=== PATIENT | male | born 1955 | race Caucasian/White ===

== ENCOUNTER 2019-12-04 11:04 | Emergency (ER) | payer MEDICAID ==
[~2019-12-04] VITALS: Ht 175.3 cm; Wt 83.9 kg
--- NOTE | 2019-12-04 11:05 | NUR ---
Placed in room 04 . Placed on equipment monitor phototypesetting, blood pressure machine and pulse oximeter. To gown for exam. Side rails up.
--- NOTE | 2019-12-04 11:06 | NUR ---
Pt brought by self,A&Ox4,pt presents to ER with N/V/D since monday, denies abd pain at this time, skin pink and warm, respirations even and unlabored, cap refill <3.
--- NOTE | 2019-12-04 11:09 | NUR ---
ER Dr. HOFFMANN at bedside examining patient
[2019-12-04 11:13] VITALS: BP_SYST 121
[2019-12-04] MEDS ORDERED: ONDANSETRON 4 MG ODT TAB PO ONE (11:45)
--- NOTE | 2019-12-04 11:53 | NUR ---
MEDICATED ORDERED, LABS DRAWN
[2019-12-04 11:55] LABS: BASOPHILS # (AUTO) 0.1 K/uL (0.0-0.2); BASOPHILS % (AUTO) 1.2 % (0.0-2.0); EOSINOPHILS # (AUTO) 0.1 K/uL (0.0-0.4); EOSINOPHILS % (AUTO) 0.9 % (0.0-4.0); HEMATOCRIT 38.5 % (36-54); HEMOGLOBIN 13.2 g/dL (14.0-18.0); LYMPHOCYTES # (AUTO) 1.4 K/uL (1.0-5.5); LYMPHOCYTES % (AUTO) 13.8 % (20.5-51.5); MEAN CORPUSCULAR HEMOGLOBIN 29 pg (27-31); MEAN CORPUSCULAR HGB CONC 34 % (32-36); MEAN CORPUSCULAR VOLUME 85 fL (79.0-98.0); MONOCYTES # (AUTO) 0.6 K/uL (0.0-1.0); MONOCYTES % (AUTO) 5.3 % (1.7-9.3); NEUTROPHILS # (AUTO) 8.2 K/uL (1.8-7.7); NEUTROPHILS % (AUTO) 78.8 % (40.0-70.0); PLATELET COUNT (AUTO) 255 K/uL (130-430); RED BLOOD CELL COUNT(AUTO) 4.53 MIL/uL (4.2-6.2); RED CELL DISTRIBUTION WIDTH 13.4 % (9.0-15.0); WHITE BLOOD COUNT (AUTO) 10.5 K/uL (4.8-10.8)
[2019-12-04 12:02] LABS: CALCIUM 9.5 mg/dL (8.4-11.0); CREATININE 3.58 mg/dL (0.55-1.30); POTASSIUM 4.1 mmol/L (3.5-5.1)
[2019-12-04 12:06] LABS: ALBUMIN 3.4 g/dL (3.4-4.8)
--- NOTE | 2019-12-04 12:53 | NUR ---
Patient given written and verbal discharge instructions and verbalizes understanding. ER MD discussed with patient the results and treatment provided. Patient in stable condition. ID arm band removed. Rx of ZOFRAN given. Patient educated on pain management and to follow up with PMD. Pain Scale 0/10. Opportunity for questions provided and answered. Medication side effect fact sheet provided.
--- NOTE | 2019-12-04 12:56 | NUR ---
Julia anaya in [facility] - 12/04/19 at 1257 by SDEDTD APARNA HOFFMANN at bedside examining patient.
[2019-12-04 12:58] VITALS: BP_SYST 131
== END 2019-12-04 12:53 | disposition home or self-care (01) ==
LOC: SED 11:04
DX: K31.84 Gastroparesis (principal); K29.70 Gastritis, unspecified, without bleeding; E11.9 Type 2 diabetes mellitus without complications
CPT/HCPCS: 36415; 80053; 81002; 82962; 83690; 85025; 99283; Q0162

== ENCOUNTER 2019-12-07 11:47 | Emergency (ER) | payer MEDICAID, SELFPAY ==
[~2019-12-07] VITALS: Ht 177.8 cm; Wt 83.9 kg
[2019-12-07 12:00] VITALS: BP_SYST 109
[2019-12-07 14:11] LABS: BASOPHILS # (AUTO) 0.1 K/uL (0.0-0.2); BASOPHILS % (AUTO) 0.9 % (0.0-2.0); EOSINOPHILS # (AUTO) 0.1 K/uL (0.0-0.4); EOSINOPHILS % (AUTO) 0.5 % (0.0-4.0); HEMATOCRIT 42.7 % (36-54); HEMOGLOBIN 14.5 g/dL (14.0-18.0); LYMPHOCYTES # (AUTO) 1.7 K/uL (1.0-5.5); LYMPHOCYTES % (AUTO) 13.5 % (20.5-51.5); MEAN CORPUSCULAR HEMOGLOBIN 29 pg (27-31); MEAN CORPUSCULAR HGB CONC 34 % (32-36); MEAN CORPUSCULAR VOLUME 86 fL (79.0-98.0); MONOCYTES # (AUTO) 0.6 K/uL (0.0-1.0); MONOCYTES % (AUTO) 4.9 % (1.7-9.3); NEUTROPHILS # (AUTO) 10.1 K/uL (1.8-7.7); NEUTROPHILS % (AUTO) 80.2 % (40.0-70.0); PLATELET COUNT (AUTO) 306 K/uL (130-430); RED CELL DISTRIBUTION WIDTH 13.3 % (9.0-15.0); WHITE BLOOD COUNT (AUTO) 12.6 K/uL (4.8-10.8)
[2019-12-07 14:16] LABS: CREATININE 3.95 mg/dL (0.55-1.30); POTASSIUM 4.4 mmol/L (3.5-5.1)
[2019-12-07 14:21] LABS: ALBUMIN 3.6 g/dL (3.4-4.8)
[2019-12-07 14:27] LABS: PROTHROMBIN TIME 10.1 SECS (9.5-12.5)
[2019-12-07 15:25] LABS: BILIRUBIN,URINE NEGATIVE (NEGATIVE); CLARITY/URINE CLEAR (CLEAR); COLOR,URINE YELLOW (YELLOW); GLUCOSE,URINE TRACE (NEGATIVE); KETONES,URINE NEGATIVE (NEGATIVE); LEUKOCYTE ESTERASE ,URINE NEGATIVE (NEGATIVE); NITRITE, URINE NEGATIVE (NEGATIVE); PH,URINE 5.5 (5.0-8.0); PROTEIN URINE 3+ (NEGATIVE); UROBILINOGEN,URINE 0.2 (0.2-1.0)
[2019-12-07 15:31] LABS: BLOOD, URINE TRACE (NEGATIVE)
[2019-12-07 15:34] LABS: RBC,URINE 0-3 /HPF (0-3)
[2019-12-07 15:35] LABS: BACTERIA,URINE FEW /HPF (None Seen); HYALINE CASTS, URINE 0-10 /LPF (None Seen); MUCUS,URINE None Seen /LPF (None Seen); WBC,URINE 0-3 /HPF (0-3)
[2019-12-07 16:08] VITALS: BP_SYST 139
== END 2019-12-07 16:08 | disposition home or self-care (01) ==
LOC: SED 11:47
DX: K85.90 Acute pancreatitis without necrosis or infection, unspecified (principal); R11.2 Nausea with vomiting, unspecified; E11.9 Type 2 diabetes mellitus without complications
CPT/HCPCS: 36415; 71045; 80053; 81000-TC; 83690-TC; 83880; 84484; 85025; 85610-TC; 85730-TC; 93005; 99285